=== PATIENT | female | born 1985 | race Hispanic/Latino ===

== ENCOUNTER 2017-03-22 11:04 | Inpatient (IN) | payer MEDICAID ==
--- NOTE | 2017-03-18 15:29 | Anesthesia Consultation ---
Anesthesia Consult and Med Hx Date of service: 03/18/17 - Airway Anesthetic Teeth Evaluation: Good, Crowns ROM Head & Neck: Adequate Mental/Hyoid Distance: Adequate Mallampati Class: Class II Intubation Access Assessment: Probably Good - Pre-Operative Health Status ASA Pre-Surgery Classification: ASA3 Proposed Anesthetic Plan: General Nerve Block: TAP (s/p gastric bypass, abdominoplasty) - Pulmonary Hx Smoking: Yes (quit 2 mos ago, smoked 1.5 p/d x 18 years) Hx Asthma: Yes (last treated over 8 yrs ago) - Central Nervous System Hx Back Pain: Yes (spinal stenosis, bilateral knee surgeries, on oxycodone) Hx Psychiatric Problems: Yes (PTSD, anxiety) - Gastrointestinal Hx Ulcer: Yes (x2) Hx Gastroesophageal Reflux Disease: Yes - Hematic Hx Anemia: Yes - Other Systems Hx Cancer: No Hx Obesity: Yes (s/p gastric, bypass, abdominoplasty)
[2017-03-18 15:44] LABS: Basophils % (Auto) 0.6 % (0.0-1.8); Eosinophils % (Auto) 0.7 % (0.0-4.3); Hematocrit 42.6 % (30.3-42.9); Hemoglobin 14.2 gm/dl (10.1-14.3); Mean Corpuscular HGB Conc 33 % (30-34); Mean Corpuscular Hemoglobin 31 pg (28-32); Mean Corpuscular Volume 92 fl (79-97); Platelet Count 211 K/mm3 (140-440); Red Blood Count 4.63 M/mm3 (3.65-5.03); Red Cell Distribution Width 13.5 % (13.2-15.2); White Blood Count 6.9 K/mm3 (4.5-11.0)
[~2017-03-22 11:04] MED LIST: LACTATED RINGERS 1,000 ML IV SCH; MARCAINE 0.5% INFILTRATI NR; NACL P/F VIAL (10 ML) INFILTRATI NR; PEPCID IV NR; SUBLIMAZE IV ONE; VERSED IV NR; XYLOCAINE 1% 20 mL INFILTRATI NR
[2017-03-22] MEDS ORDERED: CLEOCIN 600 MG/50 mL 600 MG/50 ML BAG IV NR (12:00)
[2017-03-22] MEDS ORDERED: GARAMYCIN 120 MG in NACL 0.9% 100 ML IV SCH (12:00)
--- NOTE | 2017-03-22 12:02 | History and Physical Report ---
History of Present Illness Date of examination: 03/22/17 Chief complaint: Symptomatic fibroid uterus; Menometrorrhagia History of present illness: Pt is a 32yo WF LMP 03/09/17 presents for surgical evaluation and treatment of menometrorrhagia after failed endometrial ablation. Pelvic u/s showed a uterus 8.6 x 6.3 x 3.5cm with 2 fibroids. No cysts seen. She is now scheduled for a Robotic Assisted Total Hysterectomy with ovarian conservation. Past History Past Medical History: no pertinent history Past Surgical History: appendectomy, gastric bypass, [employer]/uterine surgery, section, other (Tummy tuck; BTL; Exploratory Laparotomy x 2; Spinal stenosis; oral surgery) [employer] History: fibroids Social history: no significant social history, Medications and Allergies Allergies Allergy/AdvReac Type Severity Reaction Status Date / Time acetaminophen [From [place]] Allergy red skin, Verified 03/15/17 09:41 peeling, whelps amitriptyline Allergy red skin, Verified 03/15/17 09:41 peeling, whelps baclofen Allergy whelps, Verified 03/15/17 09:41 red skin, peeling cephalexin monohydrate Allergy red skin, Verified 03/15/17 09:41 [From Keflex] peeling, whelps Cephalosporins Allergy red skin, Verified 03/15/17 09:41 whelps, peeling codeine Allergy red skin, Verified 03/15/17 09:41 peeling, whelps dexamethasone Allergy steroid Verified 03/15/17 09:41 psychosis duloxetine HCl Allergy red skin, Verified 03/15/17 09:41 [From Cymbalta] whelps, peeling ferrous sulfate Allergy red skin, Verified 03/15/17 09:41 peeling, whelps hydrocodone bitartrate Allergy red skin, Verified 03/15/17 09:41 [From [place]] peeling, whelps iron Allergy red skin, Verified 03/15/17 09:41 peeling, whelps lithium Allergy kidney Verified 03/15/17 09:41 failure lubiprostone [From Amitiza] Allergy red skin, Verified 03/15/17 09:41 peeling, whelps Penicillins Allergy red skin, Verified 03/15/17 09:41 peeling, whelps prednisolone Allergy steroid Verified 03/15/17 09:41 psychosis prednisone Allergy red skin, Verified 03/15/17 09:41 peeling, whelps tramadol HCl [From Ultram] Allergy red skin, Verified 03/15/17 09:41 whelps, peeling trazodone Allergy over Verified 03/15/17 09:41 stimulates Home Medications Medication Instructions Recorded Confirmed Last Taken Type Citalopram [Celexa] 20 mg PO DAILY 03/15/17 03/15/17 Unknown History Cyanocobalamin (Vitamin B-12) 1,000 mcg PO QMONTH 03/15/17 03/15/17 Unknown History [Vitamin B12] Diazepam 1 mg PO BID 03/15/17 03/22/17 03/21/17 History Gabapentin [Neurontin] 300 mg PO Q8HR 03/15/17 03/22/17 03/22/17 History Oxycodone HCl [oxyCODONE TAB] 15 mg PO BID 03/15/17 03/15/17 Unknown History Ranitidine HCl [Heartburn Relief] 75 mg PO DAILY 03/15/17 03/15/17 Unknown History Sucralfate [Carafate] 5 ml PO BID 03/15/17 03/15/17 Unknown History Active Meds: Active Medications Bupivacaine HCl (Marcaine 0.5%) 20 ml INFILTRATI PREOP NR Stop: 03/22/17 23:00 Famotidine (Pepcid) 20 mg IV PREOP NR Stop: 03/22/17 23:00 Lactated Ringer's (Lactated Ringers) 1,000 mls @ 100 mls/hr IV DIRECT KRISH Clindamycin HCl (Cleocin 600 Mg/50 Ml) 600 mg in 50 mls @ 100 mls/hr IV PREOP KRISH PRN Reason: Protocol Gentamicin Sulfate 120 mg/ (Sodium Chloride) 103 mls @ 200 mls/hr IV PREOP KRISH PRN Reason: Protocol Lidocaine (Xylocaine 1% 20 Ml) 10 ml INFILTRATI PREOP NR Stop: 03/22/17 23:00 Midazolam HCl (Versed) 2 mg IV PREOP NR Stop: 03/22/17 23:59 Sodium Chloride (Nacl P/F Vial (10 Ml)) 1 ml INFILTRATI PREOP NR Stop: 03/22/17 23:00 Review of Systems All systems: negative - Vital Signs Vital signs: Vital Signs Temp Pulse Resp BP 98.8 F 78 16 130/82 03/18/17 14:50 03/18/17 14:50 03/18/17 14:50 03/18/17 14:50 Temp Pulse Resp BP Pulse Ox 98.8 F 78 16 130/82 03/18/17 14:50 03/18/17 14:50 03/18/17 14:50 03/18/17 14:50 - Physical Exam Breasts: Positive: deferred Cardiovascular: Regular rate Lungs: Positive: Clear to auscultation Abdomen: Positive: normal appearance Genitourinary (Female): Positive: normal external genitalia Vagina: Positive: normal moisture Uterus: Positive: enlarged Extremities: Positive: normal Results Result Diagrams: 03/18/17 15:00 All other labs normal. Ultrasound: report reviewed Assessment and Plan - Patient Problems (1) Menometrorrhagia Onset Date: 03/22/17 Current Visit: Yes Status: Chronic (2) Uterine fibroid Onset Date: 03/22/17 Current Visit: Yes Status: Acute Qualifiers: Uterine leiomyoma location: intramural and submucous Qualified Code(s): D25.1 - Intramural leiomyoma of uterus; D25.0 - Submucous leiomyoma of uterus Plan to address problem: A: Symptomatic fibroid uterus Menometrorrhagia - s/p failed endometrial ablation P: Admit for a Robotic Assisted Total Hysterectomy (3) Right ovarian cyst Onset Date: 03/22/17 Current Visit: Yes Status: Acute
--- NOTE | 2017-03-22 12:12 | Anesthesia Day of Surgery ---
Anesthesia Day of Surgery - Day of Surgery Patient Examined: Yes Patient H&P Reviewed: Yes Patient is NPO: Yes
[2017-03-22] MEDS ORDERED: DILAUDID IV ONE (12:23)
[2017-03-22] MEDS ORDERED: GARAMYCIN/NS 120MG/100ML 120 MG/100 ML BAG IV NR (12:30)
[2017-03-22] MEDS ORDERED: ZOFRAN IV PRN (12:30)
[2017-03-22] MEDS ORDERED: NEOSPORIN GU IR ONE ×2 (12:41→14:16)
[2017-03-22] MEDS ORDERED: XYLOCAINE MPF 2% ONE (13:07)
[2017-03-22] MEDS ORDERED: SUBLIMAZE ONE (13:07)
[2017-03-22] MEDS ORDERED: DIPRIVAN 10 MG/ML IV ONE (13:07)
[2017-03-22] MEDS ORDERED: ZEMURON IV ONE (13:07)
[2017-03-22] MEDS ORDERED: MARCAINE 0.5% 30 ML INFILTRATI ONE (13:20)
[2017-03-22] MEDS ORDERED: NACL 0.9% IR ONE ×2 (14:17→14:19)
[2017-03-22] MEDS ORDERED: MARCAINE 0.5% INFILTRATI ONE (14:19)
[2017-03-22] MEDS ORDERED: NEOSTIGMINE ONE (14:56)
[2017-03-22] MEDS ORDERED: ROBINUL ONE (14:56)
[2017-03-22] MEDS ORDERED: ZOFRAN ONE (14:58)
[2017-03-22] MEDS ORDERED: NACL 0.9% 1000 ML 1,000 ML ONE (15:20)
[2017-03-22] MEDS ORDERED: MILK OF MAGNESIA PO PRN (15:21)
[2017-03-22] MEDS ORDERED: TYLENOL PO PRN (15:21)
[2017-03-22] MEDS ORDERED: NORCO 5/325 PO PRN (15:21)
[2017-03-22] MEDS ORDERED: BENADRYL IV PRN (15:21)
[2017-03-22] MEDS ORDERED: NARCAN 0.4 MG/1 ML IV PRN ×2 (15:21)
[2017-03-22] MEDS: DILAUDID IV PRN ×2 (15:37→15:55)
[2017-03-22] MEDS: MORPHINE PCA 30MG/30ML IV SCH (15:50)
--- NOTE | 2017-03-22 15:52 | Operative Report ---
Operative Report Operative Report: Date of procedure: 03/22/2017 Pre-operative diagnosis: 1. Symptomatic fibroid uterus 2. Menometrorrhagia Post-operative diagnosis: Same with large right ovarian cyst Procedure name(s): 1. Robotic-assisted total hysterectomy 2. Right ovarian cystectomy 3. Bilateral salpingectomy Surgeon: Stevenson Augustin MD Shared Services And Outsourcing Manager: Endy Mari SA Anesthesia: Gen. endotracheal intubation by Dr. Moreno EBL: 50 mL Findings: A 10-12 week size uterus with tubes showed evidence of previous tubal ligation bilaterally. A large right ovarian cyst. A normal left ovary. Procedure: After the patient's first correctly identified she was prepped and draped in the usual sterile fashion and placed in the dorsolithotomy position. The bladder was first catheterized using Benson catheter and the speculum was placed in the vagina and the anterior lip of the cervix was grasped using a single-tooth tenaculum, and the medium Vesicare cup was placed. The tenaculum and speculum was then removed from the vagina and attention was then turned to the abdomen. The skin knife was used to make a small incision approximately 5 cm above the umbilicus through which a 12 mm trocar was placed under direct visualization. After adequate amount of abdominal insufflation visualization of the pelvic organs found the uterus to be enlarged and the tubes showed evidence of previous tubal ligation bilaterally. The left ovary was normal and the right ovary was enlarged and cystic. A right upper quadrant incision was made through which a 5 mm trocar was placed under direct visualization. A right and left paramedian incision was made through which the 8 mm trochars were placed under direct visualization. The patient was then placed in steep Trendelenburg positioning and the robot was docked on the patient's left side. After all the robotic ports were connected and adequate functioning of the robotic arms were tested the surgeon then proceeded to the console to begin the hysterectomy. First the left round ligament was grasped, cauterized and cut, the left utero- ovarian ligaments were grasped, cauterized and cut, and the left fallopian tube also grasped, cauterized and cut along the mesosalpinx thus freeing the left ovary from the left uterine sidewall. The same procedure was performed on the right. The right round ligament was grasped, cauterized and cut, the right utero-ovarian ligaments were grasped, cauterized and cut, and the right fallopian tube also grasped, cauterized and cut along the mesosalpinx thus freeing the right ovary from the right uterine sidewall. The right ovarian cyst was excised and placed in the cul-de-sac for removal. The bladder flap was taken down anteriorly and the uterine vessels were grasped, cauterized and cut bilaterally. The cardinal ligaments were sequentially grasped, cauterized and cut down to the level of the uterosacral ligaments. At this time the posterior colpotomy was performed over the Vcare cup, and the cervix was circumscribed beginning posteriorly and meeting anteriorly until the cervix was freed. The cervix and uterus along with a right ovarian cyst was then removed through the vagina and sent to pathology. The vaginal cuff was then closed using 2-0 Vloc suture in a running fashion. Irrigation was then performed and after good hemostasis was achieved the procedure was considered complete. The Tisseel sealant was then sprayed across the vaginal cuff site, and after excellent hemostasis was assured Interceed was placed across the vaginal cuff site. All instruments were then removed from the abdominal cavity. And each incision was closed using 0 Vicryl suture in a [id number] configuration on the fascia followed by 4-0 Monocryl suture in a subcuticular fashion on the skin. Each incision was also infiltrated using 0.5% Marcaine solution. The vaginal pack was removed. The patient tolerated the procedure well and was transported to the recovery room in stable condition.
[2017-03-22] MEDS ORDERED: NACL 0.9% 1000 ML 1,000 ML IV SCH (16:00)
[2017-03-22] MEDS ORDERED: TORADOL IV SCH (16:00)
[2017-03-22] MEDS ORDERED: D5LR 1,000 ML IV SCH (16:00)
--- NOTE | 2017-03-22 16:08 | Post Anesthesia Evaluation ---
- Post Anesthesia Evaluation Patient Participated: Yes Airway Patent: Yes Stable Respiratory Function: Yes Temp > 96.8F: Yes Pain Manageable: Yes Adequeate Hydration: Yes Anesthesia Complications: No
[2017-03-22] MEDS ORDERED: GARAMYCIN/NS 80 MG/100 ML 100 ML IV SCH ×2 (19:00→22:00)
[2017-03-22] MEDS ORDERED: CLEOCIN 600 MG/50 mL 600 MG/50 ML BAG IV SCH ×2 (19:00→21:00)
[2017-03-22] MEDS: COLACE PO SCH (21:52)
[2017-03-23] MEDS: PERCOCET 5/325 PO PRN ×4 (01:05→12:55)
[2017-03-23] MEDS: MORPHINE PCA 30MG/30ML IV SCH (05:19)
[2017-03-23 05:29] LABS: Hematocrit 39.2 % (30.3-42.9)
[2017-03-23] MEDS: COLACE PO SCH (09:06)
--- NOTE | 2017-03-23 09:41 | Progress Note ---
Assessment and Plan - Patient Problems (1) Menometrorrhagia Onset Date: 03/22/17 Current Visit: Yes Status: Resolved (2) Uterine fibroid Onset Date: 03/22/17 Current Visit: Yes Status: Resolved Qualifiers: Uterine leiomyoma location: intramural and submucous Qualified Code(s): D25.1 - Intramural leiomyoma of uterus; D25.0 - Submucous leiomyoma of uterus (3) Right ovarian cyst Onset Date: 03/22/17 Current Visit: Yes Status: Resolved (4) Status post robot-assisted surgical procedure Onset Date: 03/23/17 Current Visit: Yes Status: Resolved Plan to address problem: A: S/P RATH - POD #1 Doing well P: May go home this afternoon Subjective - Subjective Date of service: 03/23/17 Principal diagnosis: s/p RATH - POD #1 Interval history: Pt is feeling well, complaining of incisional pains. Tolerating a liquid diet without nausea or vomiting. +flatus Patient reports: appetite normal, voiding normally, pain well controlled, flatus , ambulating normally Objective - Vital Signs Latest vital signs: Vital Signs Temp Pulse Resp BP BP Pulse Ox 03/23/17 07:36 98.5 F 59 L 18 96/61 96 03/23/17 04:45 97.6 F 56 L 20 92/54 03/23/17 02:05 16 03/23/17 00:10 98.0 F 55 L 20 102/51 03/22/17 20:25 18 03/22/17 20:20 98.8 F 72 20 103/55 03/22/17 18:00 20 03/22/17 17:27 20 03/22/17 17:20 98.1 F 70 20 104/62 95 03/22/17 17:08 98.1 F 70 20 104/52 03/22/17 16:50 66 14 111/70 96 03/22/17 16:45 62 14 107/65 95 03/22/17 16:30 68 13 108/69 96 03/22/17 16:15 62 13 106/67 95 03/22/17 16:00 63 14 109/68 96 03/22/17 15:55 16 03/22/17 15:45 66 16 105/64 96 03/22/17 15:37 17 03/22/17 15:30 68 17 106/62 94 03/22/17 15:25 69 18 105/63 94 03/22/17 15:20 98.0 F 74 20 110/63 95 03/22/17 12:51 98.8 F 67 16 110/71 97 Intake and Output 03/22/17 03/23/17 03/23/17 22:59 06:59 14:59 Intake Total 920 120 Output Total 275 750 Balance 645 -630 Intake: IV 800 Oral 120 120 Output: Urine 275 750 Indwelling Catheter 750 Other: Total, Intake Amount 120 120 Total, Output Amount 300 Voiding Method Indwelling Catheter Toilet - Exam Breasts: Present: deferred Cardiovascular: Present: Regular rate Lungs: Present: Clear to auscultation Abdomen: Present: normal appearance, soft Extremities: Present: normal Incision: Present: normal, dry, intact - Labs Labs: Laboratory Tests 03/18/17 03/18/17 03/18/17 15:00 15:00 15:00 WBC 6.9 RBC 4.63 Hgb 14.2 Hct 42.6 MCV 92 MCH 31 MCHC 33 RDW 13.5 Plt Count 211 Lymph % (Auto) 31.0 [place] % (Auto) 6.8 Eos % (Auto) 0.7 Baso % (Auto) 0.6 Lymph # 2.1 Irion # 0.5 Eos # 0.1 Baso # 0.0 Seg Neutrophils % 60.9 Seg Neutrophils # 4.2 HCG, Qual Negative Blood Type O NEGATIVE Antibody Screen Negative 03/23/17 05:06 WBC RBC Hgb 13.0 Hct 39.2 MCV MCH MCHC RDW Plt Count Lymph % (Auto) Irion % (Auto) Eos % (Auto) Baso % (Auto) Lymph # Irion # Eos # Baso # Seg Neutrophils % Seg Neutrophils # HCG, Qual Blood Type Antibody Screen
--- NOTE | 2017-03-23 09:58 | Discharge Summary ---
Providers - Providers Date of Admission: 03/22/17 15:22 Date of discharge: 03/23/17 Attending physician: LUH MCLAUGHLIN Primary care physician: DOUGHNUT ICER Hospitalization Reason for admission: other (Symptomatic uterine fibroids; s/p Failed endometrial ablation) Procedure: other (Robotic Assisted Total Hysterectomy; Right ovarian cystectomy ; Bilateral salpingectomy) Incision: normal, dry, intact Other procedures: none complications: none Discharge diagnosis: other (s/p RATH) Hospital course: Pt is a 32yo WF LMP 03/09/17 who presented for surgical evaluation and treatment of menometrorrhagia after failed endometrial ablation. She underwent an uncomplicated Robotic Assisted Total Hysterectomy and tolerated the procedure well. Post operative course was unremakable, and by POD #1 she was tolerating a liquid diet without nausea or vomiting, ambulating and voiding without difficulty. Her diet will be advanced to a reg diet for lunch, and then she will be discharged to home in stable condition. Condition at discharge: Good Disposition: DC-01 TO HOME OR SELFCARE - Discharge Diagnoses (1) Menometrorrhagia Status: Resolved (2) Uterine fibroid Status: Resolved Qualifiers: Uterine leiomyoma location: intramural and submucous Qualified Code(s): D25.1 - Intramural leiomyoma of uterus; D25.0 - Submucous leiomyoma of uterus (3) Right ovarian cyst Status: Resolved Plan - Discharge Medications Prescriptions: oxyCODONE /ACETAMINOPHEN [Percocet 5/325 mg] 1 tab PO Q4HR PRN #30 tablet PRN Reason: Pain, Moderate (4-6) - Provider Discharge Summary Activity: routine, no sex for 6 weeks, no heavy lifting 4 weeks, no strenuous exercise Diet: routine Instructions: routine Additional instructions: [] Smoking cessation referral if applicable(refer to patient education folder for contact #) [] Refer to [facility] Booklet Call your doctor immediately for: * Fever > 100.5 * Heavy vaginal bleeding ( >1 pad per hour) * Severe persistent headache * Shortness of breath * Reddened, hot, painful area to leg or breast * Drainage or odor from incision. * Keep incision clean and dry at all times and follow doctor's instructions regarding bathing/showering - Follow up plan Follow up: PRIMARY CAREMD [Primary Care Provider] - 7 Days LUH MCLAUGHLIN MD [Staff Physician] - 14 Days
[2017-03-23] MEDS ORDERED: celeXA PO SCH (11:00)
[2017-03-23 12:57] VITALS: BP 102/52
== END 2017-03-23 14:30 | disposition home or self-care (01) | DRG 743 ==
LOC: OR 11:04 → OB 15:22
PROVIDERS: ADMIT Obstetrics & Gynecology; ATTEND Obstetrics & Gynecology
PROC: 0UT94ZZ Resection of Uterus, Percutaneous Endoscopic Approach (ICD-10-PCS; principal; 2017-03-22)
PROC: 0UTC4ZZ Resection of Cervix, Percutaneous Endoscopic Approach (ICD-10-PCS; 2017-03-22)
PROC: 0UT74ZZ Resection of Bilateral Fallopian Tubes, Percutaneous Endoscopic Approach (ICD-10-PCS; 2017-03-22)
PROC: 0UB04ZZ Excision of Right Ovary, Percutaneous Endoscopic Approach (ICD-10-PCS; 2017-03-22)
PROC: 8E0W4CZ Robotic Assisted Procedure of Trunk Region, Percutaneous Endoscopic Approach (ICD-10-PCS; 2017-03-22)
DX: D25.9 Leiomyoma of uterus, unspecified (principal); N83.201 Unspecified ovarian cyst, right side; N92.1 Excessive and frequent menstruation with irregular cycle; Z90.49 Acquired absence of other specified parts of digestive tract; Z98.84 Bariatric surgery status; Z88.6 Allergy status to analgesic agent; Z88.1 Allergy status to other antibiotic agents; Z88.5 Allergy status to narcotic agent; Z88.0 Allergy status to penicillin; Z88.2 Allergy status to sulfonamides; Z88.8 Allergy status to other drugs, medicaments and biological substances
CPT/HCPCS: 36415; 84703; 85014; 85018; 85025; 86850; 86900; 86901; 88302; 88307; A4217; C1765; C9250; J1170; J1580; J2250; J2270; J2405; J2704; J2710; J3010; J7030; J7120

== ENCOUNTER 2017-10-08 07:46 | Day surgery (SDC) | payer MEDICAID ==
[~2017-10-08 07:46] MED LIST changes: -LACTATED RINGERS 1,000 ML IV SCH; -MARCAINE 0.5% INFILTRATI NR; +MARCAINE 0.5% INFILTRATI ONE; +NACL 0.9% IR ONE; -NACL P/F VIAL (10 ML) INFILTRATI NR; -PEPCID IV NR; -SUBLIMAZE IV ONE; -VERSED IV NR; -XYLOCAINE 1% 20 mL INFILTRATI NR
[2017-10-08] MEDS ORDERED: DIPRIVAN 10 MG/ML IV ONE ×2 (08:03→11:08)
[2017-10-08] MEDS ORDERED: SUBLIMAZE ONE (08:04)
[2017-10-08] MEDS ORDERED: NEO SYNEPHRINE/NS Syringe(OR USE) IV ONE (08:17)
[2017-10-08] MEDS ORDERED: MARCAINE 0.5% 30 ML INFILTRATI ONE (08:48)
[2017-10-08] MEDS ORDERED: XYLOCAINE MPF 2% ONE (08:57)
[2017-10-08] MEDS ORDERED: ROBINUL ONE ×2 (08:57→11:37)
[2017-10-08] MEDS ORDERED: ZEMURON IV ONE (08:57)
[2017-10-08] MEDS ORDERED: NEOSTIGMINE ONE (08:58)
[2017-10-08] MEDS ORDERED: ZOFRAN ONE (08:58)
[2017-10-08] MEDS ORDERED: NACL BACTERIOSTATIC INFILTRATI ONE (09:02)
--- NOTE | 2017-10-08 09:23 | Anesthesia Consultation ---
Anesthesia Consult and Med Hx Date of service: 10/08/17 - Airway Anesthetic Teeth Evaluation: Good ROM Head & Neck: Adequate Mental/Hyoid Distance: Adequate Mallampati Class: Class I Intubation Access Assessment: Good - Pulmonary Exam CTA: Yes - Cardiac Exam Cardiac Exam: RRR - Pre-Operative Health Status ASA Pre-Surgery Classification: ASA2 Proposed Anesthetic Plan: General - Pulmonary Hx Smoking: Yes Hx Asthma: Yes (last treated over 8 yrs ago) Hx Sleep Apnea: No - Cardiovascular System Hx Hypertension: No - Central Nervous System Hx Seizures: No Hx Back Pain: Yes (spinal stenosis, bilateral knee surgeries) Hx Psychiatric Problems: Yes (PTSD, anxiety) - Gastrointestinal Hx Ulcer: Yes (x2) Hx Gastroesophageal Reflux Disease: Yes (h/o gastric bypass) - Endocrine Hx Renal Disease: No Hx Non-Insulin Dependent Diabetes: Yes (history, pt denies any problems with it post gastric bypass) Hx Thyroid Disease: No - Hematic Hx Anemia: Yes - Other Systems Hx Cancer: No Hx Obesity: Yes (s/p gastric, bypass, abdominoplasty)
[2017-10-08] MEDS ORDERED: DEMEROL IV PRN (09:25)
[2017-10-08] MEDS ORDERED: ZOFRAN IV PRN (09:25)
--- NOTE | 2017-10-08 09:37 | Short Stay Summary ---
Short Stay Documentation Date of service: 10/08/17 Narrative H&P: Pt is a 32yo WF LMP 02/2017 s/p RATH with right ovarian cystectomy presents for surgical evaluation and treatment of a 5.1cm multiseptated left ovarian mass seen on CT Scan and confirmed by pelvic u/s. CA-125 was normal. She has pelvic pain and desires a Laproscopic Bilateral Oophorectomy. - History Principal diagnosis: Left ovarian mass H&P: obtained from office Past Medical History: No medical history Past Surgical History: appendectomy, , hysterectomy, bowel surgery, Other (Gastric bypass, Tummy tuck, spinal stenosis, oral surgery) Social history: no significant social history, - Allergies and Medications Current Medications: Allergies acetaminophen [From [place]] Allergy (Verified 09/27/17 11:54) red skin, peeling, whelps amitriptyline Allergy (Verified 09/27/17 11:54) red skin, peeling, whelps baclofen Allergy (Verified 09/27/17 11:54) whelps, red skin, peeling cephalexin monohydrate [From Keflex] Allergy (Verified 09/27/17 11:54) red skin, peeling, whelps Cephalosporins Allergy (Verified 09/27/17 11:54) red skin, whelps, peeling clindamycin Allergy (Verified 09/27/17 11:56) red, peeling skin whelps codeine Allergy (Verified 09/27/17 11:54) red skin, peeling, whelps dexamethasone Allergy (Verified 09/27/17 11:54) steroid psychosis duloxetine HCl [From Cymbalta] Allergy (Verified 09/27/17 11:54) red skin, whelps, peeling ferrous sulfate Allergy (Verified 09/27/17 11:54) red skin, peeling, whelps hydrocodone [From Lortab] Allergy (Verified 09/27/17 11:56) red, peeling skin, whelps hydrocodone bitartrate [From [place]] Allergy (Verified 09/27/17 11:54) red skin, peeling, whelps iron Allergy (Verified 09/27/17 11:54) red skin, peeling, whelps lithium Allergy (Verified 09/27/17 11:54) kidney failure lubiprostone [From Amitiza] Allergy (Verified 09/27/17 11:54) red skin, peeling, whelps Penicillins Allergy (Verified 09/27/17 11:54) red skin, peeling, whelps prednisolone Allergy (Verified 09/27/17 11:54) steroid psychosis prednisone Allergy (Verified 09/27/17 11:54) red skin, peeling, whelps pregabalin [From Lyrica] Allergy (Verified 09/27/17 11:56) Mouth sores, hives, peeling skin tramadol HCl [From Ultram] Allergy (Verified 09/27/17 11:54) red skin, whelps, peeling trazodone Allergy (Verified 09/27/17 11:54) over stimulates Home Medications Medication Instructions Recorded Confirmed Last Taken Type Citalopram [Celexa] 20 mg PO DAILY 03/15/17 09/27/17 Unknown History Ranitidine HCl [Heartburn Relief] 75 mg PO DAILY 03/15/17 09/27/17 Unknown History Sucralfate [Carafate] 5 ml PO BID 03/15/17 09/27/17 Unknown History oxyCODONE /ACETAMINOPHEN [Percocet 1 tab PO Q4HR PRN #30 tablet 03/23/17 Unknown Rx 5/325 mg] clonazePAM [Klonopin] 1 mg PO BID 09/27/17 09/27/17 Unknown History Active Medications Gentamicin Sulfate (Garamycin) 120 mg 1.5 mg/kg (120 mg) IV PREOP KRISH; Protocol Hydromorphone HCl (Dilaudid) 0.5 mg IV Q10MIN PRN PRN Reason: Pain , Severe (7-10) Stop: 10/08/17 13:00 Lactated Ringer's (Lactated Ringers) 1,000 mls @ 125 mls/hr IV DIRECT KRISH Clindamycin HCl (Cleocin 600 Mg/50 Ml) 600 mg in 50 mls @ 100 mls/hr IV PREOP NR; Protocol Meperidine HCl (Demerol) 25 mg IV ONCE PRN PRN Reason: Shivering Stop: 10/08/17 12:00 Midazolam HCl (Versed) 2 mg IV PREOP NR Stop: 10/08/17 23:59 Ondansetron HCl (Zofran) 4 mg IV ONCE PRN PRN Reason: Nausea And Vomiting Stop: 10/08/17 10:00 - Physical exam General appearance: mild distress Integumentary: no rash HEENT: Atraumatic Lungs: Clear to auscultation Breasts: deferred Heart: Regular rate Gastrointestinal: normal Female Genitourinary: deferred Rectal Exam: deferred Extremities: no ischemia Neurological: Normal gait, Normal speech - Brief post op/procedure progress note Date of procedure: 10/08/17 Pre-op diagnosis: 1. Pelvic pain 2. Multiloculated left ovarian cyst Post-op diagnosis: same Procedure: Laproscopic Left Oophorectomy Anesthesia: GETA Findings: Absent uterus and cervix. Absent right ovary. A large multicystic left ovary. No pelvic adhesions noted. Surgeon: [facility] MCLAUGHLIN Estimated blood loss: minimal Pathology: list (left ovary) Specimen disposition: to lab Condition: stable - Hospital course Hospital course: Unremarkable. - Disposition Condition at discharge: Good Disposition: DC-01 TO HOME OR SELFCARE - Discharge Diagnoses (1) Pelvic pain Status: Chronic (2) Left ovarian cyst Status: Resolved Short Stay Discharge Plan Activity: no restrictions Diet: regular Wound: open to air, keep clean and dry Follow up with: SHANIQUE VALENCIA MD [Primary Care Provider] - 7 Days LUH MCLAUGHLIN MD [Staff Physician] - 14 Days Prescriptions: Oxycodone HCl/Acetaminophen [Percocet 10/325 mg] 1 each PO Q6HR PRN #30 tablet PRN Reason: Pain
[2017-10-08] MEDS ORDERED: GARAMYCIN IV SCH (09:45)
[2017-10-08] MEDS ORDERED: VERSED IV NR (10:00)
[2017-10-08] MEDS ORDERED: CLEOCIN 600 MG/50 mL 600 MG/50 ML BAG IV NR (10:00)
[2017-10-08] MEDS ORDERED: LACTATED RINGERS 1,000 ML IV SCH (10:00)
[2017-10-08 10:06] LABS: Hematocrit 40.3 % (30.3-42.9); Hemoglobin 13.6 gm/dl (10.1-14.3); Mean Corpuscular HGB Conc 34 % (30-34); Mean Corpuscular Hemoglobin 30 pg (28-32); Mean Corpuscular Volume 89 fl (79-97); Platelet Count 193 K/mm3 (140-440); Red Blood Count 4.53 M/mm3 (3.65-5.03)
[2017-10-08] MEDS ORDERED: GARAMYCIN 120 MG in NACL 0.9% 100 ML IV ONE (10:15)
[2017-10-08] MEDS ORDERED: VERSED ONE (11:21)
[2017-10-08] MEDS: DILAUDID IV PRN ×2 (12:00→12:10)
--- NOTE | 2017-10-08 12:05 | Operative Report ---
Operative Report Operative Report: Date of procedure: 10/08/2017 Pre-operative diagnosis: 1. Pelvic pain 2. Multiloculated left ovarian cyst Post-operative diagnosis: Same Procedure name(s): Laparoscopic left oophorectomy Surgeon: Stevenson Augustin MD Financial Sales Manager: None Anesthesia: Gen. endotracheal intubation EBL: 10 mL's Findings: Absent uterus and cervix. Absent right ovary. A large multicystic left ovary. No pelvic adhesions. Procedure: After the patient was correctly identified, she was prepped and draped in usual sterile fashion and placed in the dorsolithotomy position. First the bladder was emptied using straight catheter, then a sponge stick was placed in the vaginal vault. The cervix was absent. Attention was then turned to the abdomen where first a periumbilical incision was made using a skin knife , and the Optiview trocar was inserted under direct visualization. After adequate amount of abdominal insufflation, visualization of the pelvic organs found the uterus to be absent, the right ovary and fallopian tube were absent, the left fallopian tube was absent, and there was a large multicystic left ovary. Next a suprapubic incision and a left lateral incision was made through which 5 mm trochars were placed in order to aid in manipulation of the pelvic organs. The tripolar cautery was then used to clamp cauterize and cut across the left infundibulopelvic ligament, thus freeing the left ovary. The specimen was placed in the Endopouch and removed, and sent to pathology. At this point the procedure was considered complete. The Tisseel sealant was sprayed across the left infundibulopelvic ligament site, and excellent hemostasis was assured. All instruments removed from the abdomen, and the abdomen was deflated. Each incision was closed using 0 Vicryl suture in [id number] configuration of the fascia followed by 4 Monocryl suture and septic fashion on the skin. Each incision was infiltrated using 0.5% Marcaine solution. The sponge stick in the vagina was removed. The patient tolerated the procedure well and was transported to recovery in stable condition.
--- NOTE | 2017-10-08 12:18 | Post Anesthesia Evaluation ---
- Post Anesthesia Evaluation Patient Participated: Yes Airway Patent: Yes Stable Respiratory Function: Yes Nausea/Vomiting: No Temp > 96.8F: Yes Pain Manageable: Yes Adequeate Hydration: Yes Anesthesia Complications: No
--- NOTE | 2017-10-08 12:18 | Anesthesia Day of Surgery ---
Anesthesia Day of Surgery - Day of Surgery Patient Examined: Yes Patient H&P Reviewed: Yes Patient is NPO: Yes
[2017-10-08 12:30] VITALS: BP 97/53
[2017-10-08] MEDS ORDERED: PERCOCET 5/325 PO ONE (12:56)
== END 2017-10-08 13:50 | disposition home or self-care (01) ==
LOC: OR 07:46
PROVIDERS: ATTEND Obstetrics & Gynecology
DX: N83.02 Follicular cyst of left ovary (principal); J45.909 Unspecified asthma, uncomplicated; K21.9 Gastro-esophageal reflux disease without esophagitis; E11.9 Type 2 diabetes mellitus without complications; E66.9 Obesity, unspecified; F43.10 Post-traumatic stress disorder, unspecified; F41.9 Anxiety disorder, unspecified; Z98.84 Bariatric surgery status; Z88.6 Allergy status to analgesic agent; Z88.8 Allergy status to other drugs, medicaments and biological substances; Z88.1 Allergy status to other antibiotic agents; Z98.890 Other specified postprocedural states; Z90.710 Acquired absence of both cervix and uterus; Z68.31 Body mass index [BMI] 31.0-31.9, adult
CPT/HCPCS: 36415; 58661; 85027; 88305; C9250; J1170; J1580; J2250; J2370; J2405; J2704; J2710; J3010; J7120

== ENCOUNTER 2017-10-28 16:05 | Emergency (ER) | payer MEDICAID ==
--- NOTE | 2017-10-28 17:36 | Emergency Department Report ---
HPI - General Chief Complaint: Laceration/Recheck/Suture Time Seen by Provider: 10/28/17 17:21 - HPI HPI: Room 5 The patient is a 32-year-old female presenting with a chief complaint of postop wound drainage. The patient had a laparoscopic left oophorectomy secondary to a multiloculated left ovarian cyst performed by Dr. Stevenson Augustin 10/08/2017. The patient states she is having worsening abdominal pain since 2 days after the surgery. The patient states today she noticed "an internal suture" getting "pushed out" and she was informed by Dr. Augustin this happen she should come to the emergency Department immediately. The patient states today she also noticed some white pus coming from her lower laparoscopic surgical site. The patient states she contacted Dr. Augustin's office and was told to come to the ED Location: Abdominal surgical site Duration: [See above] Quality: [See above] Severity: [See above] Modifying factors: [see above] Context: [see above] Mode of transportation: [not driving] ED Past Medical Hx - Past Medical History Hx GERD: Yes Hx Arthritis: Yes Hx Headaches / Migraines: Yes (migraines) Hx Asthma: Yes (last treated over 8 yrs ago) - Surgical History Hx Appendectomy: Yes - Family History Family history: no significant - Social History Smoking Status: Former Smoker (none 1 week) Substance Use Type: None (denies illicit drug use) - Medications Home Medications: Home Medications Medication Instructions Recorded Confirmed Last Taken Type Citalopram [Celexa] 20 mg PO DAILY 03/15/17 09/27/17 10/07/17 History Ranitidine HCl [Heartburn Relief] 75 mg PO DAILY 03/15/17 09/27/17 10/07/17 History Sucralfate [Carafate] 5 ml PO BID 03/15/17 09/27/17 10/07/17 History clonazePAM [Klonopin] 1 mg PO BID 09/27/17 10/08/17 10/06/17 History Omeprazole 40 mg PO QDAY 10/08/17 10/08/17 10/07/17 History Oxycodone HCl/Acetaminophen 1 each PO Q6HR PRN #30 tablet 10/08/17 Unknown Rx [Percocet 10/325 mg] ED Review of Systems ROS: Stated complaint: INTERNAL STITCHES CAME OUT Other details as noted in HPI Constitutional: fever Gastrointestinal: abdominal pain Physical Exam - Physical Exam Vital Signs: Vital Signs 10/28/17 16:29 Temperature 98.1 F Pulse Rate 71 Respiratory 18 Rate Blood Pressure 100/51 O2 Sat by Pulse 100 Oximetry Physical Exam: GENERAL: The patient is well-developed well-nourished female lying on stretcher not appearing to be in acute distress. [] HEENT: Normocephalic. Atraumatic. Extraocular motions are intact. Patient has moist mucous membranes. NECK: Supple. Trachea midline CHEST/LUNGS: Clear to auscultation. There is no respiratory distress noted. HEART/CARDIOVASCULAR: Regular. There is no tachycardia. There is no gallop rub or murmur. ABDOMEN: Abdomen is soft, without voluntary guarding. Patient has normal bowel sounds. There is no abdominal distention. SKIN: Superior midline. The surgical site as chronic-appearing ulceration within margin of erythema (patient states the erythema is the only new change). Inferior laparoscopic site shows some induration but no fluctuance. I am unable to express purulent discharge NEURO: The patient is awake, alert, and oriented. The patient is cooperative. The patient has normal speech MUSCULOSKELETAL: There is no evidence of acute injury. ED Course Vital Signs 10/28/17 16:29 Temperature 98.1 F Pulse Rate 71 Respiratory 18 Rate Blood Pressure 100/51 O2 Sat by Pulse 100 Oximetry - Consultations Consultation #1: 10/28/17 17:35 Dr. Augustin called 10/28/17 19:[address] Augustin-states patient should continue antibiotics and follow- up in the office next week ED Medical Decision Making - Lab Data Result diagrams: 10/28/17 17:29 10/28/17 17:29 Laboratory Tests 10/28/17 10/28/17 17:29 17:29 WBC 5.0 RBC 4.36 Hgb 12.7 Hct 38.8 MCV 89 MCH 29 MCHC 33 RDW 14.8 Plt Count 213 Lymph % (Auto) 36.8 H Centre % (Auto) 6.4 Eos % (Auto) 0.8 Baso % (Auto) 0.8 Lymph # 1.8 Centre # 0.3 Eos # 0.0 Baso # 0.0 Seg Neutrophils % 55.2 Seg Neutrophils # 2.7 Sodium 140 Potassium 4.3 Chloride 104.3 Carbon Dioxide 26 Anion Gap 14 BUN 6 L Creatinine 0.5 L Estimated GFR > 60 BUN/Creatinine Ratio 12 Glucose 91 Calcium 9.1 - Differential Diagnosis wound dehiscence, wound infection, Critical care attestation.: If time is entered above; I have spent that time in minutes in the direct care of this critically ill patient, excluding procedure time. ED Disposition Clinical Impression: Post-op pain Disposition: TO HOME OR SELFCARE Is pt being admited?: No Does the pt Need Aspirin: No Condition: Stable Additional Instructions: Return to the emergency department immediately should you develop worsening symptoms, fever, inability to tolerate food or liquid or any other concerns. Referrals: STEVENSON AUGUSTIN MD [Staff Physician] - 2-3 Days Time of Disposition: 19:27
[2017-10-28 17:43] LABS: Basophils % (Auto) 0.8 % (0.0-1.8); Eosinophils % (Auto) 0.8 % (0.0-4.3); Hematocrit 38.8 % (30.3-42.9); Hemoglobin 12.7 gm/dl (10.1-14.3); Lymphocytes # (Auto) 1.8 K/mm3 (1.2-5.4); Lymphocytes % (Auto) 36.8 % (13.4-35.0); Mean Corpuscular HGB Conc 33 % (30-34); Mean Corpuscular Hemoglobin 29 pg (28-32); Mean Corpuscular Volume 89 fl (79-97); Monocytes # (Auto) 0.3 K/mm3 (0.0-0.8); Monocytes % (Auto) 6.4 % (0.0-7.3); Platelet Count 213 K/mm3 (140-440); Red Blood Count 4.36 M/mm3 (3.65-5.03); Red Cell Distribution Width 14.8 % (13.2-15.2)
[2017-10-28 17:54] LABS: BUN/Creatinine Ratio 12; Blood Urea Nitrogen 6 mg/dL (7-17); Calcium 9.1 mg/dL (8.4-10.2); Hemolysis Index 5
[2017-10-28] MEDS ORDERED: NORCO 5/325 PO ONE (19:25)
[2017-10-28] MEDS ORDERED: PERCOCET 5/325 PO ONE (19:39)
[2017-10-28 20:09] VITALS: BP 110/53
== END 2017-10-28 20:19 | disposition home or self-care (01) ==
LOC: ED 16:05
DX: G89.18 Other acute postprocedural pain (principal); G43.909 Migraine, unspecified, not intractable, without status migrainosus; M19.90 Unspecified osteoarthritis, unspecified site; J45.909 Unspecified asthma, uncomplicated; K21.9 Gastro-esophageal reflux disease without esophagitis; Z87.891 Personal history of nicotine dependence; Z88.8 Allergy status to other drugs, medicaments and biological substances; Z88.6 Allergy status to analgesic agent; Z88.1 Allergy status to other antibiotic agents
CPT/HCPCS: 36415; 80048; 85025; 99283